=== PATIENT | male | born 1945 | race African-American/Black ===

== ENCOUNTER 2018-04-12 23:16 | Emergency (ER) | payer MEDICARE, OTHER ==
[2018-04-13 00:12] LABS: COLOR,URINE RED
[2018-04-13 00:13] LABS: APPEARANCE,URINE SLIGHTLY-CLOUDY; BILIRUBIN,URINE NEGATIVE (NEGATIVE); GLUCOSE, URINE NEGATIVE (NEGATIVE); KETONES,URINE NEGATIVE (NEGATIVE); LEUKOCYTE ESTERASE,URINE LARGE (NEGATIVE); NITRITE,URINE NEGATIVE (NEGATIVE); PROTEIN,URINE 100 mg/dL (NEGATIVE); URINE SPECIFIC GRAVITY 1.004; UROBILINOGEN,URINE NEGATIVE mg/dL (<2.0)
--- NOTE | 2018-04-13 00:19 | ER Document Report ---
ED General - General Chief Complaint: Urinary Problem Stated Complaint: POSSIBLE BLOOD IN URINE Time Seen by Provider: 04/13/18 00:10 Notes: Patient is a 73-year-old male who presents with complaint of burning when he pees and also some blood in the urine. No fevers. No vomiting. No diarrhea. Says he has had some mild pain across his back as well. He does have history of prostate cancer which was treated in 2002 with radiation treatment. No problems with his prostate since. He is not on any blood thinning medications. He did bring his medications and I did review them and there is not any blood thinners. TRAVEL OUTSIDE OF THE [place] IN LAST 30 DAYS: No - Related Data Allergies/Adverse Reactions: aspirin [Aspirin] Adverse Reaction (Mild, Verified 08/01/11 06:42) Nausea Past Medical History - Social History Smoking Status: Never Smoker Frequency of alcohol use: None Drug Abuse: None Family History: Reviewed & Not Pertinent Patient has suicidal ideation: No Patient has homicidal ideation: No - Past Medical History Cardiac Medical History: Reports: Hx Hypercholesterolemia, Hx Hypertension Pulmonary Medical History: Reports: Hx Pneumonia Endocrine Medical History: Reports: Hx Diabetes Mellitus Type 2 - takes insulin Renal/ Medical History: Reports: Hx Benign Prostatic Hyperplasia. Denies: Hx Peritoneal Dialysis GI Medical History: Reports: Hx Gastroesophageal Reflux Disease - Immunizations Hx Diphtheria, Pertussis, Tetanus Vaccination: - unsure Hx Pneumococcal Vaccination: 07/11/11 Review of Systems - Review of Systems Notes: My Normal Review Basic REVIEW OF SYSTEMS: CONSTITUTIONAL : Denies fever, chills, or sweats. Denies recent illness. RESPIRATORY: Denies cough, cold, or chest congestion. Denies shortness of breath, difficulty breathing, or wheezing. GASTROINTESTINAL: Denies abdominal pain. Denies nausea, vomiting, or diarrhea. GENITOURINARY: Dysuria, hematuria. MUSCULOSKELETAL: Mild low back pain SKIN: Denies rash or skin lesions. NEUROLOGICAL: Denies altered mental status or loss of consciousness. Denies headache. Denies weakness or paralysis or loss of use of either side. Denies problems with gait or speech. Denies sensory or motor loss. ALL OTHER SYSTEMS REVIEWED AND NEGATIVE. Physical Exam - Vital signs Vitals: Temp Pulse Resp BP Pulse Ox 98.6 F 85 16 154/71 H 99 04/12/18 23:30 04/12/18 23:30 04/12/18 23:30 04/12/18 23:30 04/12/18 23:30 - Notes Notes: General Appearance: Well nourished, alert, cooperative, no acute distress, no obvious discomfort. Well-appearing. Vitals: reviewed, See vital signs table. Eyes: PERRL, EOMI, Conjuctiva clear Abdomen: Normal BS, soft, No rigidity, No abdominal tenderness, No guarding, no rebound, Genital: Uncircumcised penis. No redness or swelling to the urethral meatus. Extremities: no edema. Skin: warm, dry, appropriate color, no rash Neuro: speech clear, oriented x 3, normal affect, responds appropriately to questions. Course - Re-evaluation Re-evalutation: 04/13/18 06:[address] scan did not show any evidence of kidney stone but did show evidence of some inflammation in the bladder. I suspect he most likely has cystitis or bladder infection. I will place him on Keflex. I did give him a shot of Rocephin. Have sent his urine for culture. He is well-appearing. He does not have any signs of sepsis. I feel he is safe to be discharged home. I strongly encouraged her return to ER if he has fevers, difficulty breathing, worsening dysuria, worsening blood in his urine, or she feels unwell. Patient agrees with plan will be discharged home. Dictation of this chart was performed using voice recognition software; therefore, there may be some unintended grammatical errors. - Vital Signs Vital signs: Temp Pulse Resp BP Pulse Ox 98.7 F 88 18 147/69 H 98 04/13/18 03:49 04/13/18 03:49 04/13/18 03:49 04/13/18 03:49 04/13/18 03:49 - Laboratory Laboratory results interpreted by me: 04/12/18 23:32 Urine Protein 100 H Urine Blood LARGE H Ur Leukocyte Esterase LARGE H Discharge - Discharge Clinical Impression: Cystitis UTI (urinary tract infection) Qualifiers: Urinary tract infection type: site unspecified Hematuria presence: with hematuria Qualified Code(s): N39.0 - Urinary tract infection, site not specified Condition: Good Disposition: HOME, SELF-CARE Additional Instructions: URINARY TRACT INFECTION: Your evaluation indicates that you have a urinary tract infection. This is due to germs growing in the bladder. This is a common problem. This infection usually responds quickly to antibiotics. Your antibiotic should be taken exactly as prescribed. Drink plenty of fluids -- three to four quarts a day. Occasionally, a bladder anesthetic will be prescribed to help stop the feeling of urgency until the antibiotic has a chance to clear the infection. This may cause your urine to be dark orange. Certain urine infections require a culture. If the doctor obtained a culture, the results will be back in two days. You should call to see if a change in treatment is needed. A repeat urinalysis after you finish treatment is often recommended. The physician will let you know if further testing is required. Call the doctor if you develop fever, chills, flank pain, inability to urinate, or blood in the urine. ANTIBIOTIC THERAPY: You have been given an antibiotic prescription. It's important that you take all the medication, unless instructed otherwise by your physician. Failure to complete the entire course can result in relapse of your condition. Common side effects of antibiotics include nausea, intestinal cramping, or diarrhea. Women may develop vaginal yeast infections, and babies can get yeast (thrush) in the mouth following the use of antibiotics. Contact your physician if you develop significant side effects from this medication. Allergy to this antibiotic can result in hives, wheezing, faintness, or itching. If symptoms of allergy occur, stop the medication and call the doctor. CEPHALEXIN: The antibiotic you've been prescribed is a member of the cephalosporin class. This type of antibiotic covers a wide variety of infections, including those of the skin, lungs, and urinary tract. It's useful for staph infections. This antibiotic is slightly similar to the penicillin family. In rare cases , a person who is allergic to penicillin will also be allergic to this medication. If you have had a severe allergic reaction to penicillin, and have not taken this antibiotic since that time, notify your doctor. Antibiotics which cover many germs ("broad spectrum" antibiotics) are more likely to cause diarrhea or "yeast" infections. Women prone to vaginal yeast problems may suffer an attack after taking this antibiotic. In infants, oral thrush (white spots "stuck" on the cheek) or yeast diaper rash may result. See your doctor if these problems occur. Call at once if you develop itching, hives , shortness of breath, or lightheadedness. FOLLOW-UP CARE: If you have been referred to a physician for follow-up care, call the physician s office for an appointment as you were instructed or within the next two days. If you experience worsening or a significant change in your symptoms, notify the physician immediately or return to the Emergency Department at any time for re-evaluation. Please return to the ER immediately if you develop worsening pain, fevers, vomiting, or if you feel unwell. Prescriptions: Cephalexin Monohydrate [Keflex 500 mg Capsule] 500 mg PO BID 5 Days #14 capsule Referrals: GM JEAN PA [PHYSICIAN PUBLICITY AGENT] - 04/15/18
--- NOTE | 2018-04-13 03:27 | RADIOLOGY REPORT (SQ) ---
EXAM DESCRIPTION: CT ABDOMEN WITHOUT IV CONTRAST COMPLETED DATE/TME: 04/13/2018 00:44 CLINICAL HISTORY: 73 years, Male, hematuria,DYSURIA w/o infection. PAIN TO BACK NEAR [email or web address] PROSTATE CA COMPARISON: None. TECHNIQUE: Axial CT images were obtained of the abdomen and pelvis without contrast. Sagittal and coronal reformats were performed. DLP 218 Images stored on PACS. All CT scanners at this facility use dose modulation, iterative reconstruction, and/or weight based dosing when appropriate to reduce radiation dose to as low as reasonably achievable (ALARA). [facility]: Dose Right [facility]: CareDose [facility]: Dose Right [facility]: Teradose 4D [facility]: [employer] LIMITATIONS: None. FINDINGS: The lung bases are clear. The liver, gallbladder, pancreas, spleen, and adrenal glands are unremarkable. There is a 1.2 cm cyst within the right kidney. There is no evidence of nephrolithiasis or hydronephrosis bilaterally. The stone of the urinary bladder measuring up to 9 mm in thickness. There is no intraperitoneal free air or fluid. There is no lymphadenopathy. There are atherosclerotic calcifications of the abdominal aorta without evidence of an aneurysm. The stomach and small bowel are unremarkable. The appendix is not uniquely identified, however there are no inflammatory changes within the right lower quadrant. The colon is unremarkable. The prostate is unremarkable. There are no lytic or blastic bone lesions IMPRESSION: No evidence of nephrolithiasis or hydronephrosis. Mild thickening of the urinary bladder, which may be due cystitis. TECHNICAL DOCUMENTATION: Quality ID # [id number]: Final reports with documentation of one or more dose reduction techniques (e.g., Automated exposure control, adjustment of the mA and/or kV according to patient size, use of iterative reconstruction technique) 2010 [employer]- All Rights Reserved
[2018-04-13] MEDS ORDERED: CEFTRIAXONE INJ 1000 MG VIAL IM ONE (03:30)
[2018-04-13] MEDS ORDERED: LIDOCAINE 1% INJ-PF (10 MG/ML) 30 ML SDV INFIL ONE (03:30)
[2018-04-13 03:49] VITALS: BP 147/69
== END 2018-04-13 03:49 | disposition home or self-care (01) ==
LOC: ER 23:16
DX: N30.91 Cystitis, unspecified with hematuria (principal); M54.5 Low back pain; I10 Essential (primary) hypertension; E11.9 Type 2 diabetes mellitus without complications; Z85.46 Personal history of malignant neoplasm of prostate; Z92.3 Personal history of irradiation
CPT/HCPCS: 99283; 96372; 87086; 87088; 81001; 87186; 76380; J3490; J0696